=== PATIENT | male | born 1995 | race Caucasian/White ===

== ENCOUNTER 2019-06-25 01:07 | Emergency (ER) | payer OTHER ==
[~2019-06-25] VITALS: Ht 177.8 cm; Wt 77.3 kg
--- NOTE | 2019-06-25 01:08 | NUR ---
MOTHER AROLDO [phone] - CURRENTLY ENROUTE FROM [place] TO BE WITH PT - PLEASE CALL HER FOR ANY INFORMATION
--- NOTE | 2019-06-25 01:30 | NUR ---
CALLED MOTHER AROLDO AND OBTAINED PT HISTORY. PER MOTHER, PT HAD OD ATTEMPT IN OCTOBER 2018 BY TAKING "20 ADVIL AND DRANK" AND PT WAS DIAGNOSED WITH BIPOLAR 1 AND PRESCRIBED LITHIUM AND LATUDA. PT STOPPED TAKING MEDICATION IN NOVEMBER 2018 AND HAS HAD NO ISSUES SINCE. LAST WEEK, PT DECIDED TO DRIVE FROM HOME ([place]) TO [place] AND PER MOTHER WAS ACTING "DELUSIONAL, PARANOID, AND FLAT/DISTANT LIKE HE WAS HIDING SOMETHING." PT WAS PLAC[facility] IN [facility] IN [place] AND WAS RELEASED ON May AND SENT ON A BUS BACK HOME. MOTHER STATES PT HAS BEEN POSTING ON FACEBOOK SUICIDAL THOUGHTS AND TEXTING FRIENDS SAYING "GOODBYE" SINCE BEING ON THE BUS. PT DENIES CURRENT SI, SH, HI, AUDITORY OR VISUAL HALLUCINATIONS. PT HAS POOR INSIGHT INTO DIAGNOSIS AND DOES NOT BELIEVE HE IS BIPOLAR.
--- NOTE | 2019-06-25 02:26 | NUR ---
PT TRANSFERRED TO ROOM 16. PT UNCOOPERATIVE AND STATES "CAN YOU ROLL ME." SECURITY ASSISTED WITH PT TRANSFER.
--- NOTE | 2019-06-25 06:30 | NUR ---
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 she is driving up from [place]. she should be here around noon
[2019-06-25 08:17] VITALS: BP 154/108
[2019-06-25] MEDS ORDERED: LORazepam 1 MG tablet PO ONE (13:05)
[2019-06-25] MEDS ORDERED: LORazepam 2 mg/ml vial IM ONE (15:20)
[2019-06-25] MEDS ORDERED: haloperidol lactate 5mg/ml inj IM ONE (15:20)
== END 2019-06-25 17:33 | disposition home or self-care (01) ==
LOC: ER 01:08
DX: F70 Mild intellectual disabilities (principal)
CPT/HCPCS: 96372; 99284; J1630; J2060